=== PATIENT | female | born 1995 | race Asian ===

== ENCOUNTER 2019-08-22 00:35 | Emergency (ER) | payer SELFPAY ==
[~2019-08-22] VITALS: Ht 165.1 cm; Wt 72.7 kg
[2019-08-22 00:47] VITALS: TEMP 98.5
[2019-08-22 01:27] LABS: BASO % 0.3 % (0.0-2.0); GRAN # 11.7 (1.4-6.5); GRAN % 87.4 % (42.2-75.2); HEMATOCRIT 38.6 % (37.0-47.0); HEMOGLOBIN 13.1 g/dl (12.5-16.0); LYMPH # 1.3 (1.2-3.4); MEAN CELL VOLUME 86 fl (80.0-100.0); MEAN CORPUSCULAR HEMOGLOBIN 29 pg (27.0-31.0); MEAN CORPUSCULAR HGB CONC 34 g/dl (33.0-37.0); MEAN PLATELET VOLUME 9.9 fl (7.4-10.4); MONO # 0.3 (0.1-0.6); PLATELET COUNT 278 K/mm3 (130-400); RED BLOOD COUNT 4.49 M/mm3 (4.10-5.30); REDCELL DISTRIBUTION WIDTH-CV 11.3 % (11.5-14.5)
[2019-08-22 01:35] LABS: PROTHROMBIN TIME 11.8 SECONDS (9.7-12.8)
[2019-08-22 01:37] LABS: PARTIAL THROMBOPLASTIN TIME 22.7 SECONDS (26.0-37.0)
[2019-08-22 01:39] LABS: ALBUMIN 5.1 gm/dL (3.5-5.0); BILIRUBIN,TOTAL 0.6 mg/dL (0.0-1.0); CALCIUM 10.1 mg/dL (8.4-10.2); CREATININE, serum 0.63 (0.52-1.25); POTASSIUM 4.1 mmol/L (3.4-5.0); SALICYLATE 1.1 mg/dL; TOTAL PROTEIN 8.6 gm/dL (6.4-8.2); TRICYCLIC ANTIDEPRESS URINE NEGATIVE
[2019-08-22 03:24] VITALS: BP 121/85; PULSE 82
== END 2019-08-22 03:24 | disposition short-term general hospital (02) ==
LOC: COL.ER 00:35
PROVIDERS: Emergency Medicine
DX: T39.1X2A Poisoning by 4-Aminophenol derivatives, intentional self-harm, initial encounter (principal)
CPT/HCPCS: J0132; J2060; J2405; J3010; J7030; J7070